=== PATIENT | female | born 1985 | race African-American/Black ===

== ENCOUNTER 2018-08-15 13:12 | Emergency (ER) | payer MEDICAID ==
[~2018-08-15] VITALS: Ht 182.9 cm; Wt 88.8 kg
[2018-08-15] MEDS ORDERED: HYDROcodone/APAP 5/325 TABLET PO ONE (14:00)
--- NOTE | 2018-08-15 14:09 | NUR ---
PT IN BED RESTING. AWAITING MD ORDERS.
[2018-08-15] MEDS ORDERED: HYDROcodone/APAP 5/325 TABLET ONE (14:16)
--- NOTE | 2018-08-15 14:24 | NUR ---
pt to us now
[2018-08-15 14:41] LABS: ALBUMIN 3.5 g/dL (3.4-5.0); ANION GAP 6 mmol/L (5-15); CALCIUM 8.3 mg/dL (8.5-10.1); CHLORIDE 112 mmol/L (98-107); CREATININE 0.88 mg/dL (0.55-1.02)
[2018-08-15 14:45] LABS: BASOPHILS # (AUTO) 0.03 x10^3/uL (0-0.1); BASOPHILS % (AUTO) 1 % (0-1); EOSINOPHILS # (AUTO) 0.07 x10^3/uL (0-0.4); EOSINOPHILS % (AUTO) 1 % (1-7); LYMPHOCYTES # (AUTO) 1.65 x10^3/uL (1-3.4); LYMPHOCYTES % (AUTO) 24 % (22-44); MD NO; MEAN CORPUSCULAR HEMOGLOBIN 28.9 pg (27.0-34.8); MEAN CORPUSCULAR HGB CONC 33.2 g/dL (32.4-35.8); MEAN CORPUSCULAR VOLUME 86.9 fL (80-100); MEAN PLATELET VOLUME 7.8 fL (7.4-10.4); MONOCYTES # (AUTO) 0.21 x10^3/uL (0.2-0.8); MONOCYTES % (AUTO) 3 % (2-9); NEUTROPHILS # (AUTO) 4.83 x10^3/uL (1.8-6.8); NEUTROPHILS % (AUTO) 71 % (42-75); PLATELET COUNT 215 x10^3/uL (130-400); RED BLOOD COUNT 4.44 x10^6/uL (3.82-5.3); RED CELL DISTRIBUTION WIDTH 15.1 % (9.6-15.2)
[2018-08-15 15:35] LABS: MICROSCOPIC AUTO
[2018-08-15 15:38] LABS: CULTURE INDICATED? YES
--- NOTE | 2018-08-15 15:51 | NUR ---
pt resting in bed, eyes closed and resps even and unlabored. pt states relief of pain from medication. boyfriend at bedside.
--- NOTE | 2018-08-15 16:27 | NUR ---
BREAK RN: PT DOZING INTERMITTENLTY, AROUSES EASILY, STATES FEELING BETTER. NO IV TO DC. REVIEWED DC INSTRUCTIONS WITH PT. UNDERSTANDING VERBALIZED. PT LEFT AMB, GAIT STEADY.
[2018-08-15 16:28] VITALS: BP 150/96
== END 2018-08-15 16:30 | disposition home or self-care (01) ==
LOC: ED 15:49
DX: N83.292 Other ovarian cyst, left side (principal); N30.00 Acute cystitis without hematuria; F17.200 Nicotine dependence, unspecified, uncomplicated; Z90.49 Acquired absence of other specified parts of digestive tract
CPT/HCPCS: 36415; 76830; 80048; 81001; 82040; 84703; 85025; 87086; 99284; 99406

== ENCOUNTER 2019-11-04 11:16 | Emergency (ER) | payer MEDICAID ==
[~2019-11-04] VITALS: Ht 185.4 cm; Wt 98.9 kg
[2019-11-04 11:41] VITALS: BP 177/115
== END 2019-11-04 12:22 | disposition home or self-care (01) ==
LOC: ED 12:00
DX: J06.9 Acute upper respiratory infection, unspecified (principal); F17.200 Nicotine dependence, unspecified, uncomplicated; Z90.49 Acquired absence of other specified parts of digestive tract
CPT/HCPCS: 99283

== ENCOUNTER 2020-01-24 23:34 | Emergency (ER) | payer MEDICAID ==
[~2020-01-24] VITALS: Ht 182.9 cm; Wt 100.0 kg
--- NOTE | 2020-01-24 23:43 | NUR ---
PIE CHEF: EKG DONE IN TRIAGE.
[2020-01-25] MEDS ORDERED: KETOROLAC 30 MG/1 ML IM ONE
[2020-01-25] MEDS ORDERED: DIAZEPAM 5 MG TABLET PO ONE
[2020-01-25] MEDS ORDERED: DIAZEPAM 5 MG TABLET ONE (00:05)
[2020-01-25] MEDS ORDERED: KETOROLAC 30 MG/1 ML ONE (00:05)
--- NOTE | 2020-01-25 00:13 | NUR ---
PT TO ED WITH C/O SUDDEN ONSET ANTERIOR CHEST PAIN. DENIES CARDIAC HX.
[2020-01-25 00:41] LABS: BASOPHILS # (AUTO) 0.02 x10^3/uL (0-0.1); BASOPHILS % (AUTO) 0 % (0-1); EOSINOPHILS # (AUTO) 0.11 x10^3/uL (0-0.4); EOSINOPHILS % (AUTO) 2 % (1-7); LYMPHOCYTES # (AUTO) 2.09 x10^3/uL (1-3.4); LYMPHOCYTES % (AUTO) 31 % (22-44); MD NO; MEAN CORPUSCULAR HEMOGLOBIN 28.7 pg (27.0-34.8); MEAN CORPUSCULAR HGB CONC 33.4 g/dL (32.4-35.8); MEAN CORPUSCULAR VOLUME 86.1 fL (80-100); MEAN PLATELET VOLUME 7.8 fL (7.4-10.4); MONOCYTES # (AUTO) 0.13 x10^3/uL (0.2-0.8); MONOCYTES % (AUTO) 2 % (2-9); NEUTROPHILS # (AUTO) 4.33 x10^3/uL (1.8-6.8); NEUTROPHILS % (AUTO) 65 % (42-75); PLATELET COUNT 201 x10^3/uL (130-400); RED BLOOD COUNT 4.27 x10^6/uL (3.82-5.3); RED CELL DISTRIBUTION WIDTH 14.6 % (9.6-15.2)
[2020-01-25 00:55] LABS: ALBUMIN 3.5 g/dL (3.4-5.0); ANION GAP 4 mmol/L (5-15); CHLORIDE 110 mmol/L (98-107); CREATININE 1.04 mg/dL (0.55-1.02)
[2020-01-25 00:59] LABS: TROPONIN I < 0.015 ng/mL (0.000-0.045)
[2020-01-25] MEDS ORDERED: POTASSIUM CHLORIDE 20 MEQ TAB.ER.PRT PO ONE (01:30)
[2020-01-25] MEDS ORDERED: POTASSIUM CHLORIDE 20 MEQ TAB.ER.PRT ONE (01:32)
--- NOTE | 2020-01-25 01:44 | NUR ---
PT REPORTS PAIN LEVEL HAS DECREASED AFTER PO MEDICATIONS. POTASSIUM GIVEN.
--- NOTE | 2020-01-25 02:05 | NUR ---
PROVIDER AWARE OF BP AND PT OK TO BE D/C
[2020-01-25 02:06] VITALS: BP 170/117
== END 2020-01-25 02:07 | disposition home or self-care (01) ==
LOC: ED 01-25 00:35
DX: S29.011A Strain of muscle and tendon of front wall of thorax, initial encounter (principal); E87.6 Hypokalemia; X58.XXXA Exposure to other specified factors, initial encounter; Y93.89 Activity, other specified; Y92.89 Other specified places as the place of occurrence of the external cause; Y99.8 Other external cause status
CPT/HCPCS: 36415; 71045; 80048; 82040; 84484; 85025; 93005; 96372; 99285; J1885

== ENCOUNTER 2020-04-13 22:32 | Emergency (ER) | payer MEDICAID ==
[~2020-04-13] VITALS: Ht 182.9 cm; Wt 88.3 kg
[2020-04-13] MEDS ORDERED: KETOROLAC 30 MG/1 ML ONE (23:17)
[2020-04-13] MEDS ORDERED: ONDANSETRON 2MG/ML, 2ML ONE (23:17)
[2020-04-13] MEDS ORDERED: LISINOPRIL 10 MG TABLET ONE (23:19)
[2020-04-13] MEDS ORDERED: MORPHINE SULFATE 4 MG/ML, 1ML ONE (23:24)
--- NOTE | 2020-04-13 23:28 | NUR ---
IV PLACED, LABS DRAWN, PT MEDICATED PER MAR. PT TO IMAGING AT THIS TIME.
[2020-04-13 23:29] LABS: BASOPHILS # (AUTO) 0.06 x10^3/uL (0-0.1); BASOPHILS % (AUTO) 1 % (0-1); EOSINOPHILS # (AUTO) 0.03 x10^3/uL (0-0.4); EOSINOPHILS % (AUTO) 0 % (1-7); LYMPHOCYTES % (AUTO) 21 % (22-44); MD NO; MEAN CORPUSCULAR HGB CONC 33.3 g/dL (32.4-35.8); MEAN CORPUSCULAR VOLUME 87.1 fL (80-100); MEAN PLATELET VOLUME 7.4 fL (7.4-10.4); MONOCYTES # (AUTO) 0.64 x10^3/uL (0.2-0.8); MONOCYTES % (AUTO) 5 % (2-9); NEUTROPHILS # (AUTO) 9.26 x10^3/uL (1.8-6.8); NEUTROPHILS % (AUTO) 74 % (42-75); PLATELET COUNT 268 x10^3/uL (130-400); RED CELL DISTRIBUTION WIDTH 15.8 % (9.6-15.2)
[2020-04-13] MEDS ORDERED: SODIUM CHLORIDE 0.9% 1,000ML IVBOLUS ONE (23:30)
[2020-04-13] MEDS ORDERED: HYDROCHLOROTHIAZIDE 25 MG TABLET PO ONE (23:30)
[2020-04-13] MEDS ORDERED: SODIUM CHLORIDE FLUSH 10ML SYR IVF ONE (23:30)
[2020-04-13] MEDS ORDERED: ONDANSETRON 2MG/ML, 2ML IVPush ONE (23:30)
[2020-04-13] MEDS ORDERED: MORPHINE SULFATE 4 MG/ML, 1ML IVPush PRN (23:30)
[2020-04-13] MEDS ORDERED: LISINOPRIL 10 MG TABLET PO ONE (23:30)
[2020-04-13 23:37] LABS: ALBUMIN 4.3 g/dL (3.4-5.0); ANION GAP 8 mmol/L (5-15); CALCIUM 8.8 mg/dL (8.5-10.1); CHLORIDE 106 mmol/L (98-107); CREATININE 0.81 mg/dL (0.55-1.02)
[2020-04-14] MEDS ORDERED: LIDOCAINE 1%-EPI 1:100K, 20ML ONE (00:04)
[2020-04-14] MEDS ORDERED: ONDANSETRON ODT 4 MG ONE (00:04)
[2020-04-14] MEDS ORDERED: LIDOCAINE-MPF 1%, 5ML ONE (00:07)
--- NOTE | 2020-04-14 00:59 | NUR ---
PT RESTING ON GURNEY WITH EYES CLOSED, REPORTS DECREASED PAIN. PT UPDATED ON POC. MONITORING IN PLACE, CALL LIGHT WITHIN REACH.
[2020-04-14 02:49] VITALS: BP 191/133
== END 2020-04-14 02:54 | disposition home or self-care (01) ==
LOC: ED 04-14 00:49
DX: I16.9 Hypertensive crisis, unspecified (principal); I11.9 Hypertensive heart disease without heart failure; R11.2 Nausea with vomiting, unspecified; R51 Headache; E87.6 Hypokalemia; H53.149 Visual discomfort, unspecified; R94.31 Abnormal electrocardiogram [ECG] [EKG]; F17.210 Nicotine dependence, cigarettes, uncomplicated
CPT/HCPCS: 36415; 70450; 80048; 82040; 83690; 84703; 85025; 93005; 96374; 96375; 99285; 99406; J2270; J2405; J7030

== ENCOUNTER 2020-06-28 14:38 | Emergency (ER) | payer MEDICAID ==
[~2020-06-28] VITALS: Ht 182.9 cm; Wt 101.0 kg
[2020-06-28 15:20] LABS: BASOPHILS % (AUTO) 1 % (0-1); EOSINOPHILS % (AUTO) 1 % (1-7); LYMPHOCYTES % (AUTO) 26 % (22-44); MEAN CORPUSCULAR HEMOGLOBIN 29.5 pg (27.0-34.8); MEAN CORPUSCULAR HGB CONC 33.8 g/dL (32.4-35.8); MEAN PLATELET VOLUME 7.1 fL (7.4-10.4); MONOCYTES % (AUTO) 5 % (2-9); NEUTROPHILS % (AUTO) 67 % (42-75); PLATELET COUNT 298 x10^3/uL (130-400); RED BLOOD COUNT 4.74 x10^6/uL (3.82-5.3)
[2020-06-28 15:23] LABS: ALBUMIN 3.8 g/dL (3.4-5.0); ANION GAP 6 mmol/L (5-15); CHLORIDE 106 mmol/L (98-107); CREATININE 1.18 mg/dL (0.55-1.02)
[2020-06-28 15:26] LABS: MD NO
[2020-06-28 15:30] LABS: CALCIUM 8.1 mg/dL (8.5-10.1)
--- NOTE | 2020-06-28 16:29 | NUR ---
PT AMBULATORY TO ROOM 35 FROM [facility].
[2020-06-28] MEDS ORDERED: DIPHENHYDRAMINE 50 MG/ML, 1ML ONE (16:58)
[2020-06-28] MEDS ORDERED: LISINOPRIL 10 MG TABLET ONE (16:58)
[2020-06-28] MEDS ORDERED: METOCLOPRAMIDE 5 MG/ML, 2ML ONE (16:58)
[2020-06-28] MEDS ORDERED: KETOROLAC 30 MG/1 ML ONE (16:58)
[2020-06-28] MEDS ORDERED: METOCLOPRAMIDE 5 MG/ML, 2ML IVPush ONE (17:30)
[2020-06-28] MEDS ORDERED: LISINOPRIL 10 MG TABLET PO ONE (17:30)
[2020-06-28] MEDS ORDERED: SODIUM CHLORIDE 0.9% 1,000ML IVBOLUS ONE (17:30)
[2020-06-28] MEDS ORDERED: KETOROLAC 30 MG/1 ML IVPush ONE (17:30)
[2020-06-28] MEDS ORDERED: DIPHENHYDRAMINE 50 MG/ML, 1ML IVPush ONE (17:30)
[2020-06-28] MEDS ORDERED: SODIUM CHLORIDE FLUSH 10ML SYR IVF ONE (18:00)
[2020-06-28 18:44] VITALS: BP 160/98
== END 2020-06-28 18:46 | disposition home or self-care (01) ==
LOC: ED 16:54
DX: G43.009 Migraine without aura, not intractable, without status migrainosus (principal); I16.9 Hypertensive crisis, unspecified; R06.02 Shortness of breath; R11.2 Nausea with vomiting, unspecified; R05 Cough; F17.200 Nicotine dependence, unspecified, uncomplicated
CPT/HCPCS: 36415; 71045; 80048; 82040; 84703; 85025; 93005; 96361; 96374; 96375; 99285; J1200; J1885; J2765; J7030

== ENCOUNTER 2021-03-19 09:03 | Emergency (ER) | payer MEDICAID, OTHER ==
[~2021-03-19] VITALS: Ht 185.4 cm; Wt 100.0 kg
--- NOTE | 2021-03-19 09:45 | NUR ---
pt w report of L chest pain into L neck after lifting thigns at work, tender to touch, shoulder muscles feel tight. nsr 80s. very hypertensive as charted, out of meds x1.5 months. dneies burciaga/blurry vision/dizzy. call francis in reach. as
[2021-03-19] MEDS ORDERED: HYDROmorphone 1 MG/ML, 1ML INJ IM PRN (10:30)
[2021-03-19] MEDS ORDERED: METOPROLOL TARTRATE 50 MG TAB PO ONE (10:30)
[2021-03-19] MEDS ORDERED: ASPIRIN 81 MG TABLET CHEW PO ONE (10:30)
[2021-03-19] MEDS ORDERED: METOPROLOL TARTRATE 50 MG TAB ONE (10:34)
[2021-03-19] MEDS ORDERED: HYDROmorphone 2 MG/ML, 1ML ONE (10:34)
[2021-03-19] MEDS ORDERED: ASPIRIN 81 MG TABLET CHEW ONE (10:37)
--- NOTE | 2021-03-19 10:44 | NUR ---
MEDS PER MAR LAB AT BEDSIDE NAD.
[2021-03-19 11:03] LABS: BASOPHILS % (AUTO) 1 % (0-1); EOSINOPHILS % (AUTO) 1 % (1-7); LYMPHOCYTES % (AUTO) 23 % (22-44); MEAN CORPUSCULAR HEMOGLOBIN 29.8 pg (27.0-34.8); MEAN CORPUSCULAR HGB CONC 34.2 g/dL (32.4-35.8); MEAN PLATELET VOLUME 7.1 fL (7.4-10.4); MONOCYTES % (AUTO) 3 % (2-9); NEUTROPHILS % (AUTO) 73 % (42-75); PLATELET COUNT 230 x10^3/uL (130-400); RED BLOOD COUNT 4.41 x10^6/uL (3.82-5.3)
[2021-03-19 11:09] LABS: ALBUMIN 3.9 g/dL (3.4-5.0); ANION GAP 5 mmol/L (5-15); CALCIUM 8.4 mg/dL (8.5-10.1); CHLORIDE 110 mmol/L (98-107); CREATININE 0.64 mg/dL (0.55-1.02)
[2021-03-19 11:13] LABS: TROPONIN I < 0.015 ng/mL (0.000-0.045)
--- NOTE | 2021-03-19 11:17 | NUR ---
PT STS PAIN RELIEVED BUT FEELS NAUSOUS, BP NOT IMPROVED, WILL NOTIOFY MD. NO DIZZY/BLURRED VISION/QUAN.
[2021-03-19] MEDS ORDERED: ONDANSETRON 2MG/ML, 2ML ONE (11:20)
[2021-03-19] MEDS ORDERED: NITROGLYCERIN OINT 2%, 1GM TP ONE (11:23)
[2021-03-19] MEDS ORDERED: SODIUM CHLORIDE FLUSH 10ML SYR IVF ONE (11:30)
[2021-03-19] MEDS ORDERED: ONDANSETRON 2MG/ML, 2ML IVPush ONE (11:30)
[2021-03-19] MEDS ORDERED: NITROGLYCERIN OINT 2%, 1GM TP STA (11:31)
--- NOTE | 2021-03-19 11:33 | NUR ---
SPOKE W ELIJAH RE: HTN. PIV EST 2 INCHES NITRO PER MAR L CHEST, EDUCATED RE: NITRO PASTE. 2ND EKG IN PROG.
--- NOTE | 2021-03-19 12:18 | NUR ---
PT SITTNG IN BED EATING GUMMIES, LAUGHING W . ELIJAH IN ROOM FOR REEVAL. BP SLIGHTLY IMPROVED.
--- NOTE | 2021-03-19 13:05 | NUR ---
bp imrpoved. pt sts feels better. as
[2021-03-19 14:21] VITALS: BP 158/106
--- NOTE | 2021-03-19 14:26 | NUR ---
BREAK RN: PIV D/C, AND PT INFORMED SHE CAN GET DRESSED. D/C PW PENDING.
--- NOTE | 2021-03-19 14:52 | NUR ---
Patient/Caregiver given discharge instructions and they have confirmed that they understand the instructions. Patient ambulatory with steady gait. NAD, all questions answered appropriately, denies additional needs at this time. No personal belongings left in room after discharge.
== END 2021-03-19 15:00 | disposition home or self-care (01) ==
LOC: ED 14:55
DX: S29.011A Strain of muscle and tendon of front wall of thorax, initial encounter (principal); R07.89 Other chest pain; R06.02 Shortness of breath; I10 Essential (primary) hypertension; X58.XXXA Exposure to other specified factors, initial encounter; Y93.89 Activity, other specified; Y92.89 Other specified places as the place of occurrence of the external cause; Y99.8 Other external cause status
CPT/HCPCS: 36415; 71046; 80048; 82040; 84484; 85025; 93005; 96372; 96374; 99285; J1170; J2405